=== PATIENT | male | born 1995 | race Caucasian/White ===

== ENCOUNTER → 2021-04-27 02:48 | Outpatient (CLI) | payer OTHER, SELFPAY ==
[2021-04-27 20:49] LABS: SARS-CoV-2 RNA PCR Positive
== END ==
PROVIDERS: PCP Family Medicine; Visit Provider Family Medicine
DX: U07.1 COVID-19 (principal)
CPT/HCPCS: C9803; U0003; U0005

== ENCOUNTER 2021-09-24 08:29 | Emergency (ER) | payer OTHER, SELFPAY ==
--- NOTE | 2021-09-24 08:42 | ED.EAR ---
HPI - Ear Problem General Chief complaint: Ear Stated complaint: ear problems Time Seen by Provider: 09/24/21 09:26 Source: patient and RN notes reviewed Mode of arrival: ambulatory Limitations: no limitations History of Present Illness HPI Narrative: 25-year-old male presents with concern for ear pain. Reports left ear pain started several days ago. Reports it started with pressure and fullness, it felt plugged . Reports he started using peroxide in the left ear. Reports pain increased and he now has drainage from the ear. He reports mild nasal congestion. Denies fever, bodies, chills, sweats, cough, shortness of breath MD Complaint: ear pain Related Data Allergies Allergy/AdvReac Type Severity Reaction Status Date / Time ibuprofen [Advil] Allergy Unknown Skin Verified 09/24/21 09:11 Reaction Penicillins Allergy Unknown unknown Verified 09/24/21 09:11 wasp sting Allergy Swelling Uncoded 10/04/20 15:32 Review of Systems Review of Systems: CONSTITUTIONAL: Denies malaise, chills, sweats, or fever. EYES: Denies visual changes, redness, or discharge. ENT: Denies rhinorrhea,sinus pain, and sore throat. Reports left ear pain and drainage, nasal congestion CARDIOVASCULAR: Denies chest pain, palpitations, or edema. RESPIRATORY: Denies cough. Denies dyspnea. GASTROINTESTINAL: Denies abdominal pain, nausea, vomiting, diarrhea SKIN: Denies rash or itching. MUSCULOSKELETAL: Denies myalgia. NEUROLOGIC: Denies headache. All systems reviewed & are unremarkable except as noted in HPI and below PMFSH Family History Family History Other Family history of allergic disorder No family history of cardiovascular disease Social History Social History Alcohol intake: current Comments At time of signature, agree with nursing past medical, surgical, social and family history. There is no relevant family history pertinent to the presenting complaint Exam Narrative: GENERAL: Well-appearing, well-nourished, and in no acute distress. HEAD: Normocephalic EYES: PERRLA, conjunctivae clear ENT: Nares clear, turbinates edematous, clear discharge. Mucous membranes moist. Right TM pearly linder with dull light reflex, left TM erythematous and bulging; left tragal tenderness with EAC erythema, edema and purulent drainage. Oropharynx not erythematous without lesions. Tonsils not enlarged and without exudate, no drooling, no hoarseness, no trismus, uvula midline. NECK: Supple. No lymphadenopathy CHEST: Clear to auscultation, breath sounds equal. No wheezing, rhonchi, rales, or stridor. No respiratory distress, speaks in full sentences. HEART: Regular rate and rhythm. No murmur heard. SKIN: Warm, dry, no rash. NEURO: Alert and oriented x3. PSYCH: Normal mood and affect Course Course Emergency Course: Patient has no history of type I IgE mediated reaction to penicillin Patient is aware of diagnosis, understands and agrees to treatment plan. Anticipatory guidance given. Patient agrees to follow-up as directed and is aware of reasons to seek care at the emergency department. Portions of this record may have been created with voice recognition software Level of Care: Express Care Visit Vital Signs Vital signs: Reviewed. Medical Decision Making MDM Narrative Medical decision making narrative: Differential diagnosis considered: Sun virus, strep pharyngitis, allergic rhinitis, upper respiratory tract infection, sinusitis, rhinosinusitis, nasopharyngitis. viral pharyngitis, otitis media, otitis externa, otitis effusion, cerumen impaction, foreign body. Exam findings show no acute concerns or changes; patient is non-toxic appearing and is in no distress. Patient is appropriate for outpatient treatment and follow-up. Critical Care Time Critical Care Time Critical Care Time: No Discharge Plan Discharge Clinical Impression: O
[2021-09-24 08:48] VITALS: BP 121/66; PULSE 56; RESP 18; TEMP 36.9; O2SAT 100
[2021-09-24 09:18] VITALS: BP 121/66; PULSE 56; RESP 18; TEMP 36.9; O2SAT 100
== END 2021-09-24 09:37 | disposition home or self-care (01) ==
PROVIDERS: Emergency Provider Nurse Practitioner; PCP Family Medicine
DX: H66.92 Otitis media, unspecified, left ear (principal); H60.92 Unspecified otitis externa, left ear
CPT/HCPCS: 99213; G0463